=== PATIENT | female | born 2005 | race Caucasian/White ===

== ENCOUNTER 2025-08-27 13:04 | Emergency (ER) | payer OTHER, BC, SELFPAY ==
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
[2025-08-27 13:13] VITALS: BP 131/75; PULSE 85; RESP 16; TEMP 36.1; O2SAT 100; BMI 21.2
[2025-08-27 14:57] VITALS: BP 131/75; PULSE 85; RESP 16; TEMP 36.1; O2SAT 100
== END 2025-08-27 14:57 | disposition home or self-care (01) ==
PROVIDERS: Emergency Provider Emergency Medicine; PCP Health Educator
DX: S13.4XXA Sprain of ligaments of cervical spine, initial encounter (principal); R51.9 Headache, unspecified; V43.62XA Car passenger injured in collision with other type car in traffic accident, initial encounter; Y93.9 Activity, unspecified; Y92.410 Unspecified street and highway as the place of occurrence of the external cause; Y99.8 Other external cause status
CPT/HCPCS: 70450; 99282; 99284

== ENCOUNTER → 2025-08-27 13:15 | Outpatient (BNV) | payer SELFPAY | PROVIDERS: Emergency Provider Emergency Medicine; PCP Health Educator; Visit Provider Radiology Diagnostic Radiology | DX: R51.9 Headache, unspecified (principal); V89.2XXA Person injured in unspecified motor-vehicle accident, traffic, initial encounter | CPT/HCPCS: 70450 ==